=== PATIENT | male | born 1990 | race Caucasian/White ===

== ENCOUNTER 2018-08-25 08:07 | Emergency (ER) | payer OTHER ==
[2018-08-25 08:13] VITALS: BP 124/84; PULSE 81; RESP 18; TEMP 98.2
[2018-08-25] MEDS ORDERED: traMADol 50 MG STARTER PACK 3 TAB BTL PO STA (08:24)
--- NOTE | 2018-08-25 08:26 | ED ---
ENT HPI - General Chief complaint: Dental/Oral Stated complaint: dental abscess Time Seen by Provider: 08/25/18 08:15 Source: patient, RN notes reviewed Mode of arrival: ambulatory Limitations: no limitations - History of Present Illness Initial comments: 28-year-old male presents emergency Department chief complaint abdominal pain. Patient states that pain last few days was seen at urgent care was given penicillin and Motrin. Patient states pain is helping. Patient states pain and Robaxin are not helping. Patient denies any fever or chills no neck pain or neck stiffness. Patient states the pain radiated up into his cheek. Patient states has not contacted his dentist. Patient states he has very poor dentition. - Related Data Previous Rx's Medication Instructions Recorded Clindamycin HCl 300 mg PO Q6HR #40 cap 08/25/18 Allergies Allergy/AdvReac Type Severity Reaction Status Date / Time No Known Allergies Allergy Verified 08/25/18 08:13 Review of Systems ROS Statement: Those systems with pertinent positive or pertinent negative responses have been documented in the HPI. ROS Other: All systems not noted in ROS Statement are negative. Past Medical History Past Medical History: No Reported History History of Any Multi-Drug Resistant Organisms: None Reported Past Surgical History: No Surgical Hx Reported Past Psychological History: No Psychological Hx Reported Smoking Status: Current every day smoker Past Alcohol Use History: None Reported Past Drug Use History: Marijuana General Exam Limitations: no limitations General appearance: alert, in no apparent distress Head exam: Present: atraumatic, normocephalic, normal inspection Eye exam: Present: normal appearance, PERRL, EOMI. Absent: scleral icterus, conjunctival injection, periorbital swelling ENT exam: Present: mucous membranes moist, TM's normal bilaterally. Absent: normal exam, normal oropharynx (Edentulous, multiple dental caries, mild swelling to the right cheek) Neck exam: Present: normal inspection, full ROM. Absent: tenderness, meningismus, lymphadenopathy Respiratory exam: Present: normal lung sounds bilaterally. Absent: respiratory distress, wheezes, rales, rhonchi, stridor Cardiovascular Exam: Present: regular rate, normal rhythm, normal heart sounds. Absent: systolic murmur, diastolic murmur, rubs, gallop, clicks Neurological exam: Present: alert, oriented X3, CN II-XII intact Course Vital Signs 08/25/18 08:09 Temperature 98.2 F Pulse Rate 81 Respiratory 18 Rate Blood Pressure 124/84 O2 Sat by Pulse 98 Oximetry Medical Decision Making - Medical Decision Making 28-year-old male presented for dental pain. Patient has early dental infection secondary to multiple dental caries. Patient will be given clindamycin, [ tramadol. Patient is advised follow up with dentist on Monday and return for any worsening symptoms. Disposition Clinical Impression: Dental caries, Dental abscess Disposition: HOME SELF-CARE Condition: Stable Instructions (If sedation given, give patient instructions): Dental Abscess (ED ) Additional Instructions: Please return to the Emergency Department if symptoms worsen or any other concerns.Please follow up with the [facility] dental clinic. [facility] [place] [address]. Phone number for new patients or [phone] for existing patients. Prescriptions: Clindamycin HCl 300 mg PO Q6HR #40 cap Is patient prescribed a controlled substance at d/c from ED?: No Referrals: None,Stated [Primary Care Provider] - 1-2 days Time of Disposition: 08:25
== END 2018-08-25 08:34 | disposition home or self-care (01) ==
LOC: EC 08:07
DX: K02.9 Dental caries, unspecified (principal); K04.7 Periapical abscess without sinus; F17.200 Nicotine dependence, unspecified, uncomplicated
CPT/HCPCS: 99283

== ENCOUNTER 2022-03-16 12:22 | Emergency (ER) | payer OTHER ==
[2022-03-16 14:11] VITALS: BP 121/76; PULSE 78; RESP 18; TEMP 98.7
--- NOTE | 2022-03-16 14:12 | ED ---
General Adult HPI - General Chief complaint: Dental/Oral Stated complaint: dental abscess Time Seen by Provider: 03/16/22 14:10 Source: patient, RN notes reviewed, old records reviewed Mode of arrival: ambulatory Limitations: no limitations - History of Present Illness Initial comments: 32-year-old male with left lower dental pain, fractured tooth, patient is requesting antibiotics and anti-inflammatories prior to seeing his dentist. Patient was told that he may require extraction but was instructed to present to the emergency department for evaluation, antibiotics. No fever, no other complaints. - Related Data Previous Rx's Medication Instructions Recorded clindamycin HCL [Clindamycin HCl] 300 mg PO Q6HR #40 cap 08/25/18 Amoxic-Pot Clav 875-125Mg 1 tab PO BID 10 Days #20 tab 03/16/22 [Augmentin 875-125] Ibuprofen [Motrin] 600 mg PO Q8HR PRN #24 tab 03/16/22 Allergies Allergy/AdvReac Type Severity Reaction Status Date / Time No Known Allergies Allergy Verified 03/16/22 14:09 Review of Systems ROS Statement: Those systems with pertinent positive or pertinent negative responses have been documented in the HPI. ROS Other: All systems not noted in ROS Statement are negative. Past Medical History Past Medical History: No Reported History History of Any Multi-Drug Resistant Organisms: None Reported Past Surgical History: No Surgical Hx Reported Past Psychological History: No Psychological Hx Reported Past Alcohol Use History: None Reported Past Drug Use History: Marijuana General Exam Limitations: no limitations General appearance: alert, in no apparent distress Head exam: Present: atraumatic, normocephalic Eye exam: Present: normal appearance, PERRL ENT exam: Present: other (Left lower molar, fractured with dental caries, no drainable abscess) Respiratory exam: Present: normal lung sounds bilaterally, respiratory distress Cardiovascular Exam: Present: regular rate, normal rhythm GI/Abdominal exam: Present: soft. Absent: distended Extremities exam: Present: normal inspection, normal capillary refill Neurological exam: Present: alert, oriented X3 Psychiatric exam: Present: normal affect, normal mood Course Vital Signs 03/16/22 14:08 Temperature 98.7 F Pulse Rate 78 Respiratory 18 Rate Blood Pressure 121/76 O2 Sat by Pulse 98 Oximetry Medical Decision Making - Medical Decision Making Well-appearing male with fractured left lower molar with significant dental caries, no drainable abscess, no facial swelling, no airway involvement, no fever, stable vitals. Started on antibiotics and should follow-up with his dentist. Disposition Clinical Impression: Dental abscess, Toothache Disposition: HOME SELF-CARE Condition: Good Instructions (If sedation given, give patient instructions): Dental Abscess (ED), Toothache (ED) Additional Instructions: Please follow up with your dentist as soon as possible. Prescriptions: Amoxic-Pot Clav 875-125Mg [Augmentin 875-125] 1 tab PO BID 10 Days #20 tab Ibuprofen [Motrin] 600 mg PO Q8HR PRN #24 tab PRN Reason: Pain Is patient prescribed a controlled substance at d/c from ED?: No Referrals: None,Stated [Primary Care Provider] - 1-2 days Time of Disposition: 14:11
== END 2022-03-16 14:19 | disposition home or self-care (01) ==
LOC: EC 12:22
DX: K04.7 Periapical abscess without sinus (principal)
CPT/HCPCS: 99282

== ENCOUNTER 2022-04-19 16:07 | Emergency (ER) | payer OTHER ==
[2022-04-19 17:15] VITALS: RESP 16
[2022-04-19] MEDS ORDERED: ACET/COD 300 MG/30 MG STARTER PACK 6 TAB BTL PO STA (17:43)
[2022-04-19] MEDS ORDERED: HYDROcodone/APAP 7.5-325MG 1 EACH TAB PO ONE (17:43)
[2022-04-19] MEDS ORDERED: AMOXIC-POT CLAV 875-125MG 1 EACH TAB PO STA (17:44)
--- NOTE | 2022-04-19 17:47 | ED ---
ENT HPI - General Chief complaint: Dental/Oral Stated complaint: dental pain Time Seen by Provider: 04/19/22 17:18 Source: patient Mode of arrival: ambulatory Limitations: no limitations - History of Present Illness Initial comments: Patient is a 32-year-old male who presents to the emergency department with dental pain. Patient states he received Augmentin in our emergency department in late March due to possible infection of the left lower molar. Patient states the antibiotics improve the pain however it did not fully go away. Reports going to urgent care a couple days ago and taking 2 days of clindamycin. Patient feels that the swelling is moving from the lower to upper gums. Reports pain refractory to Motrin. He denies a fever, chills, trouble breathing. - Related Data Previous Rx's Medication Instructions Recorded clindamycin HCL [Clindamycin HCl] 300 mg PO Q6HR #40 cap 08/25/18 Amoxic-Pot Clav 875-125Mg 1 tab PO BID 10 Days #20 tab 03/16/22 [Augmentin 875-125] Ibuprofen [Motrin] 600 mg PO Q8HR PRN #24 tab 03/16/22 Amoxic-Pot Clav 875-125Mg 1 tab PO Q12HR 14 Days #28 tab 04/19/22 [Augmentin 875-125] Allergies Allergy/AdvReac Type Severity Reaction Status Date / Time No Known Allergies Allergy Verified 04/19/22 17:15 Review of Systems ROS Statement: Those systems with pertinent positive or pertinent negative responses have been documented in the HPI. ROS Other: All systems not noted in ROS Statement are negative. Past Medical History Past Medical History: No Reported History History of Any Multi-Drug Resistant Organisms: None Reported Past Surgical History: No Surgical Hx Reported Past Psychological History: No Psychological Hx Reported Past Alcohol Use History: None Reported Past Drug Use History: Marijuana General Exam Limitations: no limitations General appearance: alert, in no apparent distress Head exam: Present: atraumatic, normocephalic, normal inspection, other (No swelling of the cheeks.) Eye exam: Absent: periorbital swelling ENT exam: Present: normal oropharynx (Fractured left lower molar. Several dental caries of the left upper and lower teeth. No drainable abscess or obvious infection) Respiratory exam: Present: normal lung sounds bilaterally. Absent: respiratory distress, wheezes, rales, rhonchi, stridor Cardiovascular Exam: Present: regular rate, normal rhythm, normal heart sounds. Absent: systolic murmur, diastolic murmur, rubs, gallop, clicks Course Vital Signs 04/19/22 04/19/22 04/19/22 17:12 17:25 18:07 Temperature 98.6 F 98.2 F 97.8 F Pulse Rate 92 74 70 Respiratory 16 16 16 Rate Blood Pressure 137/90 137/80 138/73 O2 Sat by Pulse 98 100 100 Oximetry Medical Decision Making - Medical Decision Making This is a 32-year-old male presenting with dental pain. The left lower molar is fractured with several dental caries of the left upper and lower teeth. No drainable abscess, no fever, no airway involvement. Patient will be discharged with Augmentin as this seemed to work for him before. He will stop taking the clindamycin. Will send him home with a Tylenol 3 starter pack for pain. Discussed importance of dentist follow-up. Dr. Alejandro is my attendnig. Disposition Clinical Impression: Dental infection Disposition: HOME SELF-CARE Condition: Good Instructions (If sedation given, give patient instructions): Dental Abscess (ED), Toothache (ED) Additional Instructions: Take Augmentin as directed. Do not take clindamycin while taking Augmentin. Take Tylenol 3 as directed. Next dose will be in 4-6 hours, approximately 10 PM. It is extremely important you follow-up with dentist. Return to the emergency department. Return to the ED if you experience new, concerning, or worsening symptoms. Prescriptions: Amoxic-Pot Clav 875-125Mg [Augmentin 875-125] 1 tab PO Q12HR 14 Days #28 tab Is patient prescribed a controlled substance at d/c from ED?: No Referrals: None,Stated [Primary Care Provider] - 1-2 days Time of Disposition: 17:47
[2022-04-19 18:09] VITALS: BP 138/73; PULSE 70; TEMP 97.8
== END 2022-04-19 18:07 | disposition home or self-care (01) ==
LOC: EC 16:07
DX: K04.7 Periapical abscess without sinus (principal)
CPT/HCPCS: 99283